=== PATIENT | female | born 1995 | race Caucasian/White ===

== ENCOUNTER 2024-08-29 15:21 | Emergency (ER) | payer OTHER ==
[~2024-08-29] VITALS: Ht 154.9 cm; Wt 47.6 kg
[2024-08-29 15:29] VITALS: BP 112/76; TEMP 97.6
[2024-08-29] MEDS ORDERED: IBUP-2314 PO (15:47)
[2024-08-29 15:57] VITALS: O2SAT 98
== END 2024-08-29 15:58 | disposition home or self-care (01) ==
LOC: ER 15:34
DX: S01.551A Open bite of lip, initial encounter (principal); S13.4XXA Sprain of ligaments of cervical spine, initial encounter; J45.909 Unspecified asthma, uncomplicated; W01.0XXA Fall on same level from slipping, tripping and stumbling without subsequent striking against object, initial encounter; Y93.89 Activity, other specified; Y92.89 Other specified places as the place of occurrence of the external cause; Y99.8 Other external cause status